=== PATIENT | male | born 1955 | race Caucasian/White ===

== ENCOUNTER 2019-09-13 14:40 | Inpatient (IN) | payer MEDICARE, OTHER ==
[~2019-09-13] VITALS: Ht 172.7 cm; Wt 75.8 kg
[2019-09-13] MEDS ORDERED: GEMFIBROZIL600 MG PO (14:57)
[2019-09-13] MEDS ORDERED: ARICEPT10 MG PO (14:57)
[2019-09-13] MEDS ORDERED: CRESTOR20 MG PO (14:57)
[2019-09-13] MEDS ORDERED: ASPIRIN81 MG PO (14:57)
[2019-09-13] MEDS ORDERED: LEXAPRO20 MG PO (14:58)
[2019-09-13] MEDS ORDERED: GLIMEPIRIDE4 MG PO (14:58)
[2019-09-13] MEDS ORDERED: LISINOPRIL5 MG PO (14:59)
[2019-09-13] MEDS ORDERED: GLUCOPHAGE1000 MG PO (14:59)
--- NOTE | 2019-09-13 19:01 | NUR ---
ASSESSMENT COMPLETE. PT RESTING IN BED. PAIN 1/10 LONG NOT MOVING. NEEDS REMINDERS. CALL LIGHT WITHIN REACH.
--- NOTE | 2019-09-13 19:10 | NUR ---
BEDSIDE REPORT RECEIVED FROM RNS AIMEE AND ROSEMARIE. pt RESTING IN BED. RATES PAIN 1/10 RLQ. DENIES ANY NEEDS AT THIS TIME. BED ALARM ON. CALL LIGHT IN REACH. pt DEMONSTRATES USE OF CALL LIGHT.
--- NOTE | 2019-09-13 20:13 | NUR ---
BED ALARM SOUNDING, SBA TO RESTROOM FOR UNMEASURED VOID, URINE HAT PLACED IN TOILET. pt IMPULSIVE BACK TO BED AFTER VERBALIZING UNDERSTANDING TO USE BATHROOM CALL LIGHT. BED ALARM ON, SCDS ON. CALL LIGHT IN REACH. IVF INFUSING WNL ORDERED.
--- NOTE | 2019-09-13 20:44 | NUR ---
pt ASSESSMENT COMPLETE. pt DENIES PAIN STATES "IT'S BETTER". DENIES NAUSEA. HYPOACTIVE BOWEL TONES, ABDOMEN SOFT, TENDER RLQ. IV FLUSHED INFUSING WNL. VSS. pt ORIENTED TO SELF, , REORIENTATION TO SPECIFIC LOCATION, DATE PROVIDED. BED ALARM ON. SCDS IN PLACE. CALL LIGHT IN REACH. EDUCATED pt ON NPO, DENIES NEED FOR ICE CHIPS.
--- NOTE | 2019-09-13 21:41 | EKG ---
[facility] [address] [facility] [place], [place] [address] Signed Normal sinus rhythm Normal ECG No previous ECGs available Confirmed by KAYKAY SCHOFIELD MD ([id number]) on 09/13/2019 9:41:18 PM Electronically Signed By: KAYKAY SCHOFIELD MD 09/13/19 214 PATIENT NAME: ANTONIO BOOTH Nereyda RAM Electrocardiogram DATE OF : 51 PHYSICIAN: KAYKAY SCHOFIELD MD REPORT #: [id number] REPORT IS CONFIDENTIAL AND NOT TO BE RELEASED WITHOUT AUTHORIZATION
--- NOTE | 2019-09-13 23:42 | NUR ---
pt RESTING IN BED WITH EYES CLOSED. BREATHING UNLABORED, RR 16. BED ALARM ON.
--- NOTE | 2019-09-14 00:01 | NUR ---
pt BED ALARM ALARMING, pt WAS GETTING UP TO WALK TO THE BATHROOM. pt ASSISTED TO THE BATHROOM AND THEN BACK TO BED. pt RESTING SAFELY IN BED WITH CALL LIGHT IN REACH AND BED ALARM ON DENIES ANY OTHER NEEDS AT THIS TIME.
--- NOTE | 2019-09-14 02:11 | NUR ---
CHECKED ON pt. RESTING IN BED WITH EYES CLOSED, BREATHING UNLABORED. LIGHTS OFF IN ROOM. BED ALARM ON.
--- NOTE | 2019-09-14 02:23 | NUR ---
pt AWAKENS TO VOICE. VSS. RATES PAIN 1-2/10 IN LOWER ABDOMEN, "PRESSURE". DENIES NEED FOR PRN MEDICATION. BOWEL TONES HYPOACTIVE LLQ, ACTIVE THROUGHOUT, ABD SOFT. DENIES TOILETING NEEDS. CALL LIGHT IN REACH. BED ALARM ON. IVF INFUSING WNL ORDERED. pt REORIENTED TO NPO ORDERS, VERBALIZES UNDERSTANDING.
--- NOTE | 2019-09-14 03:29 | NUR ---
pt USED CALL LIGHT TO ASK FOR ASSISTANCE TO THE BATHROOM. pt SBA TO BATHROOM AND BACK TO BED. RESTING SAFELY WITH CALL LIGHT IN REACH AND BED ALARM ON, DENIES ANY OTHER NEEDS AT THIS TIME
--- NOTE | 2019-09-14 04:51 | NUR ---
pt DENIES NAUSEA, NO EMESIS, DENIES PAIN, NO PRN MEDS ADMINISTERED. pt IS IMPULSIVE, OCCASIONAL CALL LIGHT IN USE, BED ALARM IN PLACE. FREQUENT REORIENTATION THROUGHOUT SHIFT. NPO. IV FLUID INFUSING ORDERED. SCD's ON. SBA TO BATHROOM.
--- NOTE | 2019-09-14 05:02 | NUR ---
PATIENT CALLED TO USE THE BATHROOM. PATIENT IS BACK IN BED. PATIENT STATED " NO GO". BED ALARM ON FOR SAFETY. NO OTHER NEEDS AT THIS TIME.
--- NOTE | 2019-09-14 05:30 | NUR ---
pt's BED ALARM ALARMING, pt SITTING UP ON SIDE OF BED. RATES PAIN 3/10, DENIES NEED FOR PRN MEDICATION. VS STABLE, NEW BAG OF IV FLUIDS HANGING AT ORDERED RATE. LEAD JAVASCRIPT DEVELOPER IN ROOM DRAWING AM LABS. pt REMAINS SITTING ON SIDE OF BED CALL LIGHT IN REACH AND BED ALARM ON, DENIES ANY OTHER NEEDS AT THIS TIME.
--- NOTE | 2019-09-14 05:59 | NUR ---
pt's DAUGHTER CALLED WANTING AN UPDATE, UPDATE GIVEN AND THEN DAUGHTER TRANSFERED INTO ROOM TO TALK TO pt. pt ASSISTED WITH ANSWERING PHONE
--- NOTE | 2019-09-14 06:23 | NUR ---
Pt temporarily off of floor for x-ray, x-ray staff aware of pts short term memory.
--- NOTE | 2019-09-14 07:45 | NUR ---
PT ASLEEP AT BEGINNING OF REPORT. WOKE UP AND GOT UP TO THE BATHROOM WITH STAND BY ASSIST. NO NEEDS AT THIS TIME.
--- NOTE | 2019-09-14 07:50 | NUR ---
PATIENT RESTING IN BED. CALL LIGHT WITHIN REACH. NO OTHER NEEDS AT THIS TIME
--- NOTE | 2019-09-14 08:20 | NUR ---
Received call from Lisa, pt's daughter. Pt lives with Lisa in [place] the majority of the time, but comes and spends few days with her brother monthly in [place]. Daughter states concern as she is unsure what he will need on dc. Updated Dr. Paiz will complete orders and they will give them to her in writting. She states she is unsure if she will pick him up or if her brother will. Let her know I will give her number to Dr. Paiz so he can call after surgery. Daughter states pt has had a TBI and only has about 10 sec memory. He was living with his parents and not doing well. She moved him in with her and she has put him on a diet and has him exercise daily. Denies use of DME.
--- NOTE | 2019-09-14 09:45 | NUR ---
NG TUBE PLACED BY RN. PT LEAVING WITH SURGERY RN.
--- NOTE | 2019-09-14 10:33 | NUR ---
PATIENT IN SURGERY. I&O DONE. NO OTHER NEEDS AT THIS TIME
--- NOTE | 2019-09-14 11:54 | NUR ---
PT TAKEN TO OR FOR SURGERY. WILL FOLLOW UPON RETURN
--- NOTE | 2019-09-14 12:30 | NUR ---
Attempted to see to complete CM assessment, pt has not returned from surgery.
--- NOTE | 2019-09-14 12:49 | NUR ---
09/14/19 1249 Sheets,Nicole 1241 PT ARRIVED TO PACU ON 6L VIA MASK, RESP EVEN AND UNLABORED. PT DENIES PAIN AND NAUSEA. VSS.
--- NOTE | 2019-09-14 13:17 | NUR ---
Report received by SHANE Potts. Patient off unit in PACU.
--- NOTE | 2019-09-14 13:50 | NUR ---
PATIENT JUST COME BACK FROM SURGERY. VITAL SIGNS DONE BY RN. CALL LIGHT WITHIN REACH. NO OTHER NEEDS AT THIS TIME
--- NOTE | 2019-09-14 14:00 | NUR ---
Manual BP of 90/54, HR in the 90's. Dr. Cruz notified. Orders acknowledged to bolus 1L of LR and then continue maintenance fluids at 85 mls/hr. Will continue to monitor.
--- NOTE | 2019-09-14 14:26 | NUR ---
PT DOING WELL. HAS HAD SOME WATER AND JELLO. TOLERATED WELL NO N/V. NO PAIN AT THIS TIME. LUNG SOUNDS CLEAR. ACTIVE BOWEL TONES IN ALL 4 QUADRANTS. SCDS ON AND RUNNING. DAUGHTER UPDATED. NO NEEDS AT THIS TIME. CALL LIGHT WITHIN REACH.
--- NOTE | 2019-09-14 15:01 | NUR ---
MED REC COMPLETE
--- NOTE | 2019-09-14 15:33 | NUR ---
PT AWAKE RESTING IN BED. NO NEED TO USE THE RESTROOM YET. IS READY TO TRY SOME MORE FOOD. TOLERATED JELLO EARLIER. PT HAS REMOVED O2 AT SOME TIME AND HIS SAO2 97% ON RA. NO PAIN OR NAUSEA AT THIS TIME.
--- NOTE | 2019-09-14 16:20 | NUR ---
PATIENT RESTING IN BED. PATIENT GOES TO USE THE BATHROOM. ONE PERSON ASSISTING. PATIENT BACKS TO BED. BED ALARM ON. CALL LIGHT WITHIN REACH. NO OTHER NEEDS AT THIS TIME
--- NOTE | 2019-09-14 18:53 | NUR ---
BP 95/49 AT 1815 AFTER BOLUS. PT ASYMPTAMATIC. NOTIFIED DR. TANNER AND TOOK PARAMETERS TO PASS ON TO THE NEXT SHIFT.
--- NOTE | 2019-09-14 19:45 | NUR ---
BED ALARM SOUNDING, SBA TO RESTROOM FOR VOID IN URINAL. pt BACK IN BED, DENIES PAIN. SANGUINOUS DRAINAGE NOTED IN JASON DRAIN. BED ALARM ON. IVF INFUSING WNL ORDERED. CALL LIGHT IN REACH. YOGURT AND FRUIT PROVIDED AT THIS TIME. NO ADDITIONAL REQUESTS.
--- NOTE | 2019-09-14 20:00 | NUR ---
PT ALERT, APPEARS RESTLESS, SPONTANEUS. WAS TRYING TO GET UP ON HIS OWN. PT FORGETFUL. BED ALARM PLACED FOR SAFETY. SHANE GEORGE HELPED WITH USE OF URINAL. PT PLEASANTLY CONFUSED, NEEDS CONSTANT REMINDER AND REDIRECTION.
--- NOTE | 2019-09-14 22:06 | NUR ---
PT ALERT, ORIENTED TYRONE HIMSELF, PLACE AND SITUATION. SPONTANEUSE BU TCOOPERATIVE AND EASY TO REDIRECT. DONE WITH ASSESSMENT. EMPTIED JASON DRAIN AND REINFORCED DRESSING ON JASON DRAIN WITH SOME GAUSES. PT USED I.S, TEMP WENT DOWN TO 99.5 F. REPORTED SOME DISCOMFORT. SEE MAR FOR MEDICATION ADMINISTRATION . FLUSHED BOTH IV WITH 10 ML OF NS WITHOUT ANY DIFFICULTIES.
--- NOTE | 2019-09-14 23:08 | NUR ---
pt ATTEMPTING TO GET OUT OF BED INDEPENDENTLY. SBA TO RESTROOM FOR 200 ML VOID IN URINAL AND BACK TO BED. pt ASSISTED WITH REMOTE. RESTING IN BED WITH CALL LIGHT IN REACH. IVF INFUSING WNL ORDERED. CPOX IN PLACE SPO2 WNL. SCDS ON. BED ALARM ON.
--- NOTE | 2019-09-15 01:25 | NUR ---
pt ambulated with betsey Beltran around the unit. Pt stated he is not bale to sleep. VSS, dressing dry, intact. JASON drained 5 ml, tubing stripped. Pt reported mild discomfort. Refused prn pain medication. Stated "I can wait until morning". Pt in bed, dim light in the room. bed alarm is on.
--- NOTE | 2019-09-15 01:26 | NUR ---
SBA TO RESTROOM FOR VOID. AMBULATED IN HALLWAY SBA WITH THIS RN. pt TOLERATED WELL, DENIES PAIN, STATES "JUST A LITTLE SORE". DENIES NEED FOR PRN MEDICATION. BACK IN BED. VSS. BED ALARM ON. SHANE MEEK IN ROOM ASSESSING pt.
--- NOTE | 2019-09-15 05:53 | NUR ---
PT ALERT, IMPULSIVE, FORGETFUL. BED ALARM IS ON FOR SAFETY. PT AMBULATED THIS EVENING AROUND THE UNIT. SIS NOT SLEEP MUCH DURING THIS SHIFT. ADEQUATE OUTPUT. PT NEEDS CONSTANT REMINDER TO USE THE URINAL. STATED HIS PAIN IS TOLERABLE, DENIED PRN PAIN MEDICATION. DRESSING INTACT. THERE IS A SCANT AMOUNT OF RED DISCHARGE ON THE DRESSING BUT NO CHANGES SINCE THE BEGINNING OF THE SHIFT. JASON DRESSING WAS REINFORCED WITH GAUZES, DRAINED 25 ML. tHE BLOOD CLOT WAS NOTED IN JASON DRAIN, STRIPPED THE TUBING. SCD PLACED. VSS.
--- NOTE | 2019-09-15 07:25 | NUR ---
REPORT RECIEVED FROM CHARGE NURSE, UPDATES FROM PRIMARY CARE STATION WORKER NURSE. PATIENT IS UP TO CHAIR.
--- NOTE | 2019-09-15 07:44 | NUR ---
MORNING ASSESSMENT DONE. PATIENT UP TO CHAIR FOR BREAKFAST, CHAIR ALARM IS ON. PATIENT DENIES ANY PAIN OR NAUSEA THIS MORNING. RIGHT LOWER QUADRANT DRESSING IN INTACT WITH OLD SANGUINOUS DRAINAGE. JASON DRAIN TUBE STRIPPED, SCANT AMOUNT OF SANGUINOUS DRAINAGE IN BULB. LUNGS ARE CLEAR, BOWELS ARE ACTIVE. IVF INFUSING TO LEFT ARM.
--- NOTE | 2019-09-15 07:50 | NUR ---
PATIENT SITTING UP IN CHAIR. PATIENT ASSISTED FOR STUDENT RN WITH SHAVING AND ORAL CARE. LINENS CHANGED. CALL LIGHT WITHIN REACH. NO OTHER NEEDS AT THIS TIME
--- NOTE | 2019-09-15 08:17 | NUR ---
PATIENT RESTING IN BED. RN IN ROOM. SETS UP TABLE FOR BREAKFAST. CALL LIGHT WITHIN REACH. NO OTHER NEEDS AT THIS TIME
--- NOTE | 2019-09-15 09:31 | NUR ---
DR. TANNER IN TO SEE PATIENT. RIGHT LOWER QUADRANT JASON D/C'D AND COVERED WITH BANDAID. RLQ INCISION DRESSING IS INTACT. RIGHT AND LEFT IV REMOVED WITH CATHETER INTACT. PATIENT IS RESTING IN BED.
[2019-09-15] MEDS ORDERED: MOTRIN IB200 MG PO (09:41)
[2019-09-15] MEDS ORDERED: TYLENOL EXTRA500 MG PO (09:41)
--- NOTE | 2019-09-15 10:20 | NUR ---
Spoke with Roberto for CM assessment. He states he has dementia and can't remember most things. Discussed he had a TBI, he is unable to remember how this happened. He struggles to remember what town he lives in, PCP, or pharmacy. He finally states I should speak with his daughter. States he lives in a 1 story home without steps. He moved in with his daughter after living with his parents. States he lost close to 100# as she put him on a healthy diet and had him start exercising. States he feels good and was able to get rid of his CPAP. Plans on dc to home with daughter when he is released today. Denies needs at home. Spoke with daughter and she is driving from [place] to pick him up. She also denies any needs for a safe discharge. She will stop by her brother's house and sweet pickle maker sweat pants for him to wear home. [facility] pharmacy called and his meds are ready in [place].
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
--- NOTE | 2019-09-15 10:37 | OR ---
[facility] [address], [place] [address] Signed DATE OF OPERATION: 09/14/2019 SURGEON: Luc Tanner MD PREOPERATIVE DIAGNOSIS: Giant incarcerated right inguinal hernia (cecum, appendix, and ileum). POSTOPERATIVE DIAGNOSES: 1. Giant incarcerated right inguinal hernia, sliding type with incarcerated cecum, appendix and ileum. 2. Ischemic subacute inflammation of the appendix and cecum. PROCEDURES PERFORMED: 1. Reduction of giant right inguinal hernia. 2. Repair of an incarcerated sliding right inguinal hernia with implantation of prolene mesh, underlay technique. 3. Appendectomy. ANESTHESIA: General endotracheal; Luc Iraheta CRNA, and local 10 mL of 0.25% Marcaine with epinephrine. 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 He usually lives in [place] with his daughter. He is staying currently with his son as a respite for his sister, who cares for him most of the time. The patient has had a very large bulky incarcerated right inguinal hernia for over a year. He presented to the emergency room late yesterday with a tense, nonreducible giant right inguinal hernia extending into the scrotum. He was evaluated by Dr. Stanton. A CT scan of the abdomen was undertaken, which showed incarceration of generous portion of the cecum and small bowel and appendix was present as well. His white count was elevated. He did not have overt small-bowel obstruction, though there were proximal bowel loops that were somewhat dilated. My attempts at reduction were unsuccessful. He does not have severe tenderness at the site of the obstruction or in the scrotum and does not have peritonitis. He was admitted given fluid resuscitation, IV antibiotics and now is to undergo right inguinal hernia repair with reduction of the hernia. The risks of bleeding, infection, need for midline incision to allow for reduction of the hernia, and other unforeseen complications were reviewed in detail. The patient understands to the degree he can as does his son who attends to him. Electronically Signed By: LUC TANNER MD 09/15/19 [facility] PATIENT NAME: ANTONIO BOOTH JR OPERATIVE REPORT DATE OF : 51 REPORT #: [id number] PHYSICIAN: LUC TANNER MD PCP: NO PRIMARY CARE PHYSICIAN REPORT IS CONFIDENTIAL AND NOT TO BE RELEASED WITHOUT AUTHORIZATION [facility] [address], [place] [address] Signed FINDINGS: Even after general and endotracheal anesthesia hernia could not be reduced. Operative reduction was undertaken after a fair amount of dissection. A large indirect sac was noted. A sliding component of right colon was noted to the posterior wall. The cecum itself was edematous and initially ischemic, but not reversibly so and once the reduction was undertaken, prompt resumption of good flow to the cecum was noted. The appendix was similarly ischemic and although not necrotic by any means, did not "pink up" in the way the cecum did and on that basis appendectomy was performed. Reduction of the hernia and excision of the large hernia sac was undertaken. Prolene mesh was implanted in the properitoneal space in an underlay technique. Good repair of the hernia was noted. Cord structures were preserved. A drain was placed given the extent of dissection. DESCRIPTION OF PROCEDURE: The patient was brought to the operating room and given a general endotracheal anesthesia per COVID-19 protocol. After 28 minutes of air exchange time, the remaining team presented and the right groin and genitalia were clipped and prepared with a chlorhexidine solution and draped sterilely. Photographs were taken. Attempts at reducing the hernia now that he was completely relaxed were completely unsuccessful. An incision was made in the lower abdominal wall crease on the right side. Dissection carried through the skin sharply and with electrocautery through the subcutaneous tissue. Edema of the subcutaneous spaces was noted. External oblique was defined well from the external ring. Still no reduction of the hernia was possible. External oblique was incised along its fibers had further dissection undertaken identifying well the neck of the hernia extending into the scrotum. The cremasteric muscle layer was rather thickened and hypertrophied as a testimony to long-standing nature of this hernia. His fibers were incised as was the internal spermatic fascia and ultimately reduction of the hernia could be undertaken. The hernia sac was then dissected free from the cord structures using blunt electrocautery dissection with meticulous attention to hemostasis. Hernia sac was quite large indeed and was fully dissected free. The hernia sac was opened and the neck of the hernia sac was approximately 4 to 6 cm in diameter at minimum. Internally some inflammatory ascites fluid was noted. The cecum was then delivered out of the peritoneal cavity and showed ischemic changes. No sign of necrosis by any means. The appendix similarly showed such findings. With a brief amount of time, the cecum returned to a normal color with good flow. The appendix on the other hand stayed rather ischemic. Rather than hazard a delayed appendicitis or other problem. Appendectomy was deemed appropriate. Geneva clamp used to elevate the appendix and the mesoappendix secured with hemostats Electronically Signed By: LUC TANNER MD 09/15/19 1037 PATIENT NAME: ANTONIO BOOTH JR OPERATIVE REPORT DATE OF : 51 REPORT #: [id number] PHYSICIAN: LUC TANNER MD PCP: NO PRIMARY CARE PHYSICIAN REPORT IS CONFIDENTIAL AND NOT TO BE RELEASED WITHOUT AUTHORIZATION [facility] [address], [place] [address] Signed and tied with 2-0 silk ties. The base of the appendix was crushed and milked distally in the crush mason ligated with a 2-0 Vicryl. The appendix was amputated. The stump cauterized and the stump inverted with two separate interrupted 2-0 silk sutures inverting the stump completely. The cecum and ileum were returned to the peritoneal cavity. Further dissection of the hernia sac internally showed attachments of the cecum to the hernia sac, making this a sliding-type hernia. These adhesions were freed more fully allowing for complete dissection of the hernia sac itself. The hernia sac was closed with a running 2-0 silk suture in a bidirectional configuration as it was broad and wide. The redundant hernia sac amputated and passed for pathology. An Allis clamp was applied to the tendon of the transversus abdominis. The properitoneal space was incised with electrocautery. The properitoneal fat bluntly free. A segment of Prolene mesh was cut to an elliptical configuration and secured in an underlay technique with interrupted 2-0 Prolene suture. Photographs were taken throughout the repair. The cord structures were found to be well preserved. No sign of injury occurred to it during the course of dissection. 10 mL of 0.25% Marcaine with epinephrine was injected locally. The cord was placed into the canal and through a separate stab incision laterally, a 7 mm flat Delmar drain was placed extending from the floor of the canal down into the scrotum. Given the large empty space and soft tissue, which was edematous. External oblique was reapproximated with running 2-0 Vicryl suture. Eugenio's layers were approximated with interrupted 3-0 Vicryl and skin closed with running subcuticular 3-0 Vicryl. Steri-Strips were applied. Drains attached to bulb suction after being secured with a nylon suture. The patient tolerated the procedure well. A prolonged extubation is anticipated based on the COVID-19 extubation protocol. Luc Tanner MD JM/MODL /[id number] cc: Dr. Stanton Copies: Electronically Signed By: LUC TANNER MD 09/15/19 1037 PATIENT NAME: ANTONIO BOOTH JR OPERATIVE REPORT DATE OF : 51 REPORT #: [id number] PHYSICIAN: LUC TANNER MD PCP: NO PRIMARY CARE PHYSICIAN REPORT IS CONFIDENTIAL AND NOT TO BE RELEASED WITHOUT AUTHORIZATION [facility] [address] [place] [id number] Signed ~ Electronically Signed By: LUC TANNER MD 09/15/19 1037 PATIENT NAME: ANTONIO BOOTH JR OPERATIVE REPORT DATE OF : 51 REPORT #: [id number] PHYSICIAN: LUC TANNER MD PCP: NO PRIMARY CARE PHYSICIAN REPORT IS CONFIDENTIAL AND NOT TO BE RELEASED WITHOUT AUTHORIZATION
--- NOTE | 2019-09-15 11:22 | NUR ---
PATIENT UP TO CHAIR, DENIES NEEDS, PLANT PROPAGATOR IN ROOM WITH PATIENT.
--- NOTE | 2019-09-15 13:03 | NUR ---
PT ALERT, ORIENTED AND SITTING UP IN BED. HAD GOOD VISIT WITH PT, SEEMED TO ENJOY COMPANY. PT LIVES WITH HIS DAUGHTER AND SON ALTERNATELY. PT TALKED ABOUT HUNTING AND FISHING, PLANS ON DC TODAY. GAVE BLESSING STAFF CAME IN TO GET PT READY FOR DC.
--- NOTE | 2019-09-15 13:23 | PATH ---
[facility] [address], [place] [address] Signed SPECIMEN(S): A APPENDIX SPECIMEN(S): B RIGHT INGUINAL HERNIA SAC SPECIMEN SOURCE: A. APPENDIX B. RIGHT INGUINAL HERNIA SAC CLINICAL HISTORY: A) Ischemic inflammation of appendix. B) Incarcerated right inguinal hernia with obstruction. FINAL PATHOLOGIC DIAGNOSIS: A. Appendix, appendectomy: - Acute appendicitis. B. Right inguinal hernia sac, herniorrhaphy: - Hernia sac. DDF:emb:C2NR MICROSCOPIC EXAMINATION: Histologic sections of all submitted blocks are examined by light microscopy. These findings, together with the gross examination, support the pathologic diagnosis. GROSS DESCRIPTION: Two specimens are received in two containers, labeled "LP." A. The specimen, labeled "LP," and designated on the requisition "appendix," is received in formalin and consists of Specimen: Appendix with mesoappendix. Dimensions: 7.5 x 0.6 cm. Serosa: Melvern-red, focally congested with enlarged and congested subserosal vessels. Perforation: Not grossly identified. Inking: Staple line is inked black. Mucosa: Melvern-gonzalez. Fecalith: Not grossly identified. Additional: None. Department Secretary sections are submitted in cassette (A1). B. The specimen, labeled "LP," and designated on the requisition "right inguinal hernia sac," is received in formalin and consists of one piece of pink-gonzalez, fibromembranous tissue that measures 16.0 x 4.2 x 0.7 cm. Sectioning through the specimen is unremarkable. No masses or PATIENT NAME: ANTONIO BOOTH JR PATHOLOGY DATE OF : 51 REPORT #: [id number] PHYSICIAN: ARMANDO LARIOS PCP: NO PRIMARY CARE PHYSICIAN REPORT IS CONFIDENTIAL AND NOT TO BE RELEASED WITHOUT AUTHORIZATION [facility] [address] [place] [id number] Signed abnormalities are identified. Department Secretary sections are submitted in cassette (B1). JS (under the direct supervision of a pathologist) The Gross Description was prepared using a voice recognition system. The report was reviewed for accuracy; however, sound-alike word errors, addition and/or deletions may occur. If there is any question about this report, please contact Client Services. PERFORMING LABORATORY: The technical component was performed by [facility], [address] [place] [address] ([employer] Helper: Disha Mckeon MD; CLIA# [id number]). [facility] [address] [place] [address] (CLIA# [id number]). Diagnostician: Antione Coyne DO Pathologist Electronically Signed 09/15/2019 Copies: ~ PATIENT NAME: ANTONIO BOOTH JR PATHOLOGY DATE OF : 51 REPORT #: [id number] PHYSICIAN: ARMANDO PATHOLOGY PCP: NO PRIMARY CARE PHYSICIAN REPORT IS CONFIDENTIAL AND NOT TO BE RELEASED WITHOUT AUTHORIZATION
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
== END 2019-09-15 12:40 | disposition home or self-care (01) | DRG 343 ==
LOC: ED 14:40 → MS 16:51
PROVIDERS: ADMIT Surgery
PROC: 0YU50JZ Supplement Right Inguinal Region with Synthetic Substitute, Open Approach (ICD-10-PCS; principal; 2019-09-14 11:00)
PROC: 0DTJ0ZZ Resection of Appendix, Open Approach (ICD-10-PCS; 2019-09-14 11:00)
DX: K40.30 Unilateral inguinal hernia, with obstruction, without gangrene, not specified as recurrent (principal); K37 Unspecified appendicitis; S06.9X0S Unspecified intracranial injury without loss of consciousness, sequela; F02.80 Dementia in other diseases classified elsewhere, unspecified severity, without behavioral disturbance, psychotic disturbance, mood disturbance, and anxiety; R73.03 Prediabetes; I10 Essential (primary) hypertension; E78.5 Hyperlipidemia, unspecified; V89.2XXS Person injured in unspecified motor-vehicle accident, traffic, sequela; Z87.891 Personal history of nicotine dependence; Z79.899 Other long term (current) drug therapy; Z79.84 Long term (current) use of oral hypoglycemic drugs
CPT/HCPCS: 00830; 36415; 74018; 74176; 80048; 80053; 83690; 85025; 88302; 88304; 93005; 93010; 96361; 96374; 96375; 96376; 99285-25; A9270; C1781; J0330; J1100; J1644; J1885; J1956; J2250; J2270; J2405; J2704; J2765; J3010; J7040; J7121